=== PATIENT | male | born 1970 | race Caucasian/White ===

== ENCOUNTER 2019-03-30 04:10 | Inpatient (IN) | payer MEDICAID ==
[~2019-03-30] VITALS: Ht 170.2 cm; Wt 112.9 kg
[2019-03-30 05:19] LABS: BASOPHILS % 0.8 % (0.0-2.0); EOSINOPHILS % 3.8 % (0.0-5.0); HEMATOCRIT. 43.5 % (42.0-52.0); HEMOGLOBIN. 15.1 g/dL (14.0-18.0); LYMPHOCYTES % 31.7 % (20.0-50.0); MEAN CORPUSCULAR HEMOGLOBIN 31.8 pg (28.0-32.0); MEAN CORPUSCULAR VOLUME 91.6 fL (80.0-94.0); MONOCYTES % 10.6 % (2.0-8.0); NEUTROPHILS % 53.1 % (40.0-76.0); PLATELET 204 x1000/uL (130-400); RED BLOOD CELL COUNT 4.75 mill/uL (4.7-6.1); RED CELL DISTRIBUTION WIDTH 13.7 % (11.6-14.6)
[2019-03-30 05:26] LABS: CHLORIDE 114 mEq/L (98-107)
[2019-03-30] MEDS ORDERED: KETOROLAC 15MG/ML VIAL IV ONE (06:00)
[2019-03-30] MEDS ORDERED: MORPHINE SULFATE 4 MG/ML CPJ (NOT FOR IM USE) IV ONE (06:15)
[2019-03-30] MEDS ORDERED: SODIUM CHLORIDE 0.9% 1,000 ML IV ONE (06:15)
[2019-03-30] MEDS ORDERED: ACETAMINOPHEN 325MG TABLET PO PRN (07:30)
[2019-03-30] MEDS ORDERED: HYDROCODONE/APAP 7.5/325MG 1 TAB TABLET PO PRN (07:30)
[2019-03-30] MEDS ORDERED: CLONIDINE 0.1MG TABLET PO PRN (07:30)
[2019-03-30] MEDS ORDERED: ENOXAPARIN 40MG/0.4ML SYR SUBCUT NR (09:00)
[2019-03-30] MEDS: THIAMINE HCL 100MG TABLET PO SCH ×2 (10:18→10:20)
[2019-03-30] MEDS: ONDANSETRON HCL 4MG/2ML INJ IV PRN (10:19)
[2019-03-30] MEDS: MORPHINE SULFATE 2 MG/ML CPJ (NOT FOR IM USE) IV PRN ×3 (10:19→21:33)
[2019-03-30] MEDS: SODIUM CHLORIDE 0.9% 1,000 ML IV SCH ×2 (10:19→17:47)
[2019-03-30 10:37] VITALS: BP 135/78
[2019-03-30 12:00] VITALS: BP 141/81
[2019-03-30 20:00] VITALS: BP 112/81
[2019-03-30] MEDS: ENOXAPARIN 30MG/0.3ML SYR SUBCUT SCH (21:27)
[2019-03-30 22:46] LABS: CLARITY URINE CLEAR (CLEAR); COLOR URINE YELLOW (YELLOW); KETONES URINE NEGATIVE (NEGATIVE); LEUKOCYTE ESTERASE URINE NEGATIVE (NEGATIVE); NITRITE URINE NEGATIVE (NEGATIVE); OCCULT BLOOD URINE NEGATIVE (NEGATIVE); PH URINE 5.5 (4.5-8.0); PROTEIN URINE NEGATIVE (NEGATIVE); SPECIFIC GRAVITY URINE 1.014 (1.005-1.030); UROBILINOGEN URINE 0.2 E.U./dL (0.2-1.0)
[2019-03-30 23:00] LABS: *AMPHETAMINES SCREEN URINE NEGATIVE (NEGATIVE); *BARBITURATES SCREEN URINE NEGATIVE (NEGATIVE); *BENZODIAZEPINES SCREEN URINE NEGATIVE (NEGATIVE); *COCAINE SCREEN URINE NEGATIVE (NEGATIVE)
[2019-03-30 23:01] LABS: CANNABINOID URINE SCREEN NEGATIVE (NEGATIVE); METHADONE URINE SCREEN NEGATIVE (NEGATIVE); OPIATES URINE SCREEN PRESUMTIVE POSITIVE (NEGATIVE); PHENCYCLIDINE URINE SCREEN NEGATIVE (NEGATIVE)
[2019-03-31] VITALS: BP 106/66
[2019-03-31] MEDS: SODIUM CHLORIDE 0.9% 1,000 ML IV SCH ×3 (00:08→23:46)
[2019-03-31 04:00] VITALS: BP 117/57
[2019-03-31 06:49] LABS: BASOPHILS % 0.7 % (0.0-2.0); EOSINOPHILS % 3.4 % (0.0-5.0); HEMOGLOBIN. 14.9 g/dL (14.0-18.0); LYMPHOCYTES % 32.1 % (20.0-50.0); MEAN CORPUSCULAR HEMOGLOBIN 30.9 pg (28.0-32.0); MEAN CORPUSCULAR VOLUME 91.1 fL (80.0-94.0); MEAN PLATELET VOLUME 8.1 fl (7.4-10.4); MONOCYTES % 10.9 % (2.0-8.0); NEUTROPHILS % 52.9 % (40.0-76.0); PLATELET 187 x1000/uL (130-400); RED BLOOD CELL COUNT 4.83 mill/uL (4.7-6.1); RED CELL DISTRIBUTION WIDTH 13.6 % (11.6-14.6)
[2019-03-31 06:50] LABS: CHLORIDE 112 mEq/L (98-107)
[2019-03-31 07:05] LABS: AMYLASE 61 IU/L (25-115)
[2019-03-31 08:00] VITALS: BP 119/82
[2019-03-31] MEDS: MORPHINE SULFATE 2 MG/ML CPJ (NOT FOR IM USE) IV PRN ×3 (08:35→19:56)
[2019-03-31] MEDS: ENOXAPARIN 30MG/0.3ML SYR SUBCUT SCH ×2 (08:35→20:00)
[2019-03-31] MEDS: THIAMINE HCL 100MG TABLET PO SCH (08:35)
[2019-03-31 12:00] VITALS: BP 112/72
[2019-03-31] MEDS: ONDANSETRON HCL 4MG/2ML INJ IV PRN (15:49)
[2019-03-31 16:00] VITALS: BP 118/71
[2019-03-31 20:00] VITALS: BP 120/84
[2019-04-01] VITALS: BP 112/76
[2019-04-01] MEDS: MORPHINE SULFATE 2 MG/ML CPJ (NOT FOR IM USE) IV PRN ×3 (00:07→10:50)
[2019-04-01] MEDS: DEXT 5%/0.45% NACL KCL 20MEQ/L 1,000 ML IV SCH ×2 (02:17→19:54)
[2019-04-01 04:00] VITALS: BP 107/75
[2019-04-01 07:18] LABS: BASOPHILS % 0.9 % (0.0-2.0); HEMOGLOBIN. 14.8 g/dL (14.0-18.0); LYMPHOCYTES % 41.7 % (20.0-50.0); MEAN CORPUSCULAR HEMOGLOBIN 31.5 pg (28.0-32.0); MEAN CORPUSCULAR VOLUME 91.7 fL (80.0-94.0); MEAN PLATELET VOLUME 7.8 fl (7.4-10.4); MONOCYTES % 13.2 % (2.0-8.0); NEUTROPHILS % 39.2 % (40.0-76.0); PLATELET 197 x1000/uL (130-400); RED BLOOD CELL COUNT 4.69 mill/uL (4.7-6.1); RED CELL DISTRIBUTION WIDTH 13.8 % (11.6-14.6)
[2019-04-01 07:31] LABS: CHLORIDE 110 mEq/L (98-107)
[2019-04-01 08:00] VITALS: BP 114/61
[2019-04-01] MEDS: THIAMINE HCL 100MG TABLET PO SCH (08:49)
[2019-04-01] MEDS ORDERED: FENTANYL CITRATE/PF 50MCG/ML 2ML VIAL ONE (11:30)
[2019-04-01] MEDS ORDERED: MIDAZOLAM HCL 2 MG/2 ML VIAL ONE (11:30)
[2019-04-01] MEDS ORDERED: LIDOCAINE HCL/PF 1% 10 MG/ML 5ML VIAL ONE ×2 (11:30→11:35)
[2019-04-01] MEDS ORDERED: PROPOFOL 200MG/20ML VIAL IV ONE (11:30)
[2019-04-01] MEDS ORDERED: SUCCINYLCHOLINE CHLORIDE 200MG/10ML IV ONE (11:30)
[2019-04-01] MEDS ORDERED: ROCURONIUM BROMIDE 10MG/ML VIAL 5ML IV ONE (11:31)
[2019-04-01] MEDS ORDERED: EPHEDRINE SULFATE 50MG/ML VIAL ONE (11:35)
[2019-04-01] MEDS ORDERED: ONDANSETRON HCL 4MG/2ML INJ ONE (11:39)
[2019-04-01] MEDS ORDERED: DEXAMETHASONE 4MG/ML 1ML VIAL ONE (11:40)
[2019-04-01 12:00] VITALS: BP 122/79
[2019-04-01] MEDS ORDERED: BUPIVACAINE HCL/PF 0.5% (5MG/ML) 10ML ONE (13:17)
[2019-04-01] MEDS ORDERED: LIDOCAINE HCL 1% 20ML VIAL (Pyxis) INJ ONE (13:17)
[2019-04-01] MEDS ORDERED: CEFAZOLIN SODIUM 1000MG/VIAL ONE (14:39)
[2019-04-01] MEDS ORDERED: GLYCOPYRROLATE 0.2 MG/ML 2ML VIAL ONE (15:31)
[2019-04-01] MEDS ORDERED: NEOSTIGMINE METHYLSULFATE 1MG/ML 10 ML VIAL ONE (15:31)
[2019-04-01] MEDS ORDERED: KETOROLAC 30MG/ML VIAL ONE (15:33)
[2019-04-01] MEDS ORDERED: SKIN ADHESIVE 0.7 GM EA TOP ONE (15:35)
[2019-04-01] MEDS ORDERED: HYDROMORPHONE HCL/PF 2MG/ML CPJ IV PRN (16:30)
[2019-04-01] MEDS: HYDROMORPHONE HCL/PF 2MG/ML CPJ IV PRN ×2 (19:53→23:25)
[2019-04-01 20:00] VITALS: BP 125/86
[2019-04-02] VITALS: BP 123/81
[2019-04-02] MEDS: DEXT 5%/0.45% NACL KCL 20MEQ/L 1,000 ML IV SCH ×2 (03:18→09:24)
[2019-04-02] MEDS: HYDROMORPHONE HCL/PF 2MG/ML CPJ IV PRN (03:55)
[2019-04-02 04:00] VITALS: BP 102/65
[2019-04-02 08:00] VITALS: BP 106/61
[2019-04-02] MEDS: THIAMINE HCL 100MG TABLET PO SCH (09:23)
[2019-04-02 12:00] VITALS: BP 111/66
[2019-04-02 13:02] VITALS: BP 111/66
== END 2019-04-02 13:30 | disposition home or self-care (01) | DRG 263 ==
LOC: ER 04:10 → 6EST 06:49 → ENRESERV 08:49
PROVIDERS: ADMIT Internal Medicine Nephrology; ATTEND Internal Medicine Nephrology
PROC: 0FT44ZZ Resection of Gallbladder, Percutaneous Endoscopic Approach (ICD-10-PCS; principal; 2019-04-01)
DX: K80.00 Calculus of gallbladder with acute cholecystitis without obstruction (principal); K85.10 Biliary acute pancreatitis without necrosis or infection; E87.8 Other disorders of electrolyte and fluid balance, not elsewhere classified; E44.1 Mild protein-calorie malnutrition; E66.01 Morbid (severe) obesity due to excess calories; K76.0 Fatty (change of) liver, not elsewhere classified; F17.210 Nicotine dependence, cigarettes, uncomplicated; Z68.39 Body mass index [BMI] 39.0-39.9, adult; Z71.6 Tobacco abuse counseling; Z71.3 Dietary counseling and surveillance
CPT/HCPCS: 36415; 76705; 78227; 80048; 80305; 81003; 82150; 83036; 88304; 96361; 96374; 96375; 99285; A9537; J0330; J0690; J1100; J1170; J1650; J1885; J2250; J2270; J2405; J2704; J2710; J3010; J3490; J7030

== ENCOUNTER 2019-06-01 04:36 | Emergency (ER) | payer MEDICAID ==
[~2019-06-01] VITALS: Ht 170.2 cm; Wt 102.0 kg
[2019-06-01 07:58] VITALS: BP 127/83
== END 2019-06-01 08:07 | disposition home or self-care (01) ==
LOC: ER 04:36
DX: R06.00 Dyspnea, unspecified (principal); F17.210 Nicotine dependence, cigarettes, uncomplicated; F15.10 Other stimulant abuse, uncomplicated; Z71.6 Tobacco abuse counseling; Z87.828 Personal history of other (healed) physical injury and trauma; Z98.890 Other specified postprocedural states
CPT/HCPCS: 71045; 93005; 99283; 99406

== ENCOUNTER 2019-06-26 04:06 | Emergency (ER) | payer MEDICAID ==
[~2019-06-26] VITALS: Ht 170.2 cm; Wt 109.6 kg
[2019-06-26] MEDS ORDERED: TETRACAINE 0.5% OPHTH DROPS 4ML RIGHTEYE ONE (05:15)
[2019-06-26] MEDS ORDERED: IBUPROFEN 600MG TABLET PO ONE (05:15)
[2019-06-26] MEDS ORDERED: FLUORESCEIN SODIUM 1MG/STRIP RIGHTEYE ONE (05:30)
[2019-06-26 05:56] VITALS: BP 133/87
== END 2019-06-26 05:57 | disposition home or self-care (01) ==
LOC: ER 04:06
DX: R51 Headache (principal); H57.11 Ocular pain, right eye; R03.0 Elevated blood-pressure reading, without diagnosis of hypertension; F15.10 Other stimulant abuse, uncomplicated
CPT/HCPCS: 99284

== ENCOUNTER 2020-02-01 02:50 | Emergency (ER) | payer MEDICAID ==
[~2020-02-01] VITALS: Ht 170.2 cm; Wt 109.0 kg
[2020-02-01 02:52] VITALS: BP 135/91
[2020-02-01] MEDS ORDERED: IBUPROFEN 800MG TABLET PO ONE (03:15)
== END 2020-02-01 03:21 | disposition left against medical advice (07) ==
LOC: ER 02:50
DX: M25.571 Pain in right ankle and joints of right foot (principal); F15.10 Other stimulant abuse, uncomplicated; Z88.9 Allergy status to unspecified drugs, medicaments and biological substances; Z98.890 Other specified postprocedural states
CPT/HCPCS: 99281

== ENCOUNTER 2021-05-14 19:23 | Emergency (ER) | payer MEDICAID ==
[~2021-05-14] VITALS: Ht 170.2 cm; Wt 98.0 kg
[~2021-05-14 19:23] MED LIST: NAPR-681 PO
[2021-05-14] MEDS ORDERED: HYDR30CR80 TP (23:17)
[2021-05-14 23:30] VITALS: BP 120/65
== END 2021-05-14 23:40 | disposition home or self-care (01) ==
LOC: ER 19:23
DX: K62.89 Other specified diseases of anus and rectum (principal); F15.90 Other stimulant use, unspecified, uncomplicated; Z88.6 Allergy status to analgesic agent
CPT/HCPCS: 99283

== ENCOUNTER 2021-06-08 10:40 | Emergency (ER) | payer MEDICAID ==
[~2021-06-08] VITALS: Ht 170.2 cm; Wt 102.0 kg
[~2021-06-08 10:40] MED LIST changes: +HYDR30CR80 TP
[2021-06-08] MEDS ORDERED: IBUPROFEN 600MG TABLET PO ONE (11:30)
[2021-06-08 11:54] VITALS: BP 129/90
[2021-06-08] MEDS ORDERED: BENZ1LOZ60 MT (12:54)
[2021-06-08] MEDS ORDERED: IBUP-2029 MT (12:54)
== END 2021-06-08 13:32 | disposition home or self-care (01) ==
LOC: ER 10:52
DX: U07.1 COVID-19 (principal); R50.9 Fever, unspecified; J02.9 Acute pharyngitis, unspecified; Z79.899 Other long term (current) drug therapy; F15.10 Other stimulant abuse, uncomplicated
CPT/HCPCS: 87426; 99283

== ENCOUNTER 2021-07-15 13:33 | Emergency (ER) | payer MEDICAID ==
[~2021-07-15] VITALS: Ht 170.2 cm; Wt 102.0 kg
[~2021-07-15 13:33] MED LIST changes: +BENZ1LOZ60 MT; +IBUP-2029 MT
[2021-07-15] MEDS ORDERED: KETOROLAC 30MG/ML VIAL IV STA (14:23)
[2021-07-15] MEDS ORDERED: MORPHINE SULFATE 4 MG/ML CPJ (NOT FOR IM USE) IV STA (14:23)
[2021-07-15] MEDS ORDERED: SODIUM CHLORIDE 0.9% 1,000 ML IV ONE (14:30)
[2021-07-15 14:45] LABS: BASOPHILS % 0.6 % (0.0-2.0); EOSINOPHILS % 2.8 % (0.0-5.0); HEMATOCRIT. 48.2 % (42.0-52.0); HEMOGLOBIN. 16.6 g/dL (14.0-18.0); LYMPHOCYTES % 17.8 % (20.0-50.0); MEAN CORPUSCULAR HEMOGLOBIN 31.8 pg (28.0-32.0); MEAN CORPUSCULAR VOLUME 92.4 fL (80.0-94.0); MEAN PLATELET VOLUME 8.1 fl (7.4-10.4); MONOCYTES % 9.6 % (2.0-8.0); NEUTROPHILS % 69.2 % (40.0-76.0); PLATELET 247 x1000/uL (130-400); RED BLOOD CELL COUNT 5.22 mill/uL (4.7-6.1)
[2021-07-15 14:48] LABS: CHLORIDE 113 mEq/L (98-107)
[2021-07-15 15:32] LABS: CLARITY URINE CLEAR (CLEAR); COLOR URINE DARK YELLOW (YELLOW); KETONES URINE TRACE (NEGATIVE); LEUKOCYTE ESTERASE URINE NEGATIVE (NEGATIVE); NITRITE URINE NEGATIVE (NEGATIVE); OCCULT BLOOD URINE NEGATIVE (NEGATIVE); PH URINE 5.5 (4.5-8.0); PROTEIN URINE 1+ (NEGATIVE); SPECIFIC GRAVITY URINE 1.035 (1.005-1.030)
[2021-07-15] MEDS ORDERED: IOHEXOL-300 100 ML BOTTLE ONE (18:51)
[2021-07-15 18:56] VITALS: BP 129/84
== END 2021-07-15 21:03 | disposition home or self-care (01) ==
LOC: ER 13:33
DX: R10.31 Right lower quadrant pain (principal); F12.10 Cannabis abuse, uncomplicated; Z90.49 Acquired absence of other specified parts of digestive tract
CPT/HCPCS: 36415; 74177; 80053; 81003; 83690; 85025; 96361; 96374; 96375; 99285; J1885; J2270; J7030; J7042; Q9967

== ENCOUNTER 2021-11-24 18:10 | Emergency (ER) | payer MEDICAID ==
[~2021-11-24] VITALS: Ht 170.2 cm; Wt 111.0 kg
[~2021-11-24 18:10] MED LIST changes: -BENZ1LOZ60 MT; +BENZ1LOZ73 MT
[2021-11-24] MEDS ORDERED: KETOROLAC 15MG/ML VIAL IM ONE (19:45)
[2021-11-24 20:53] VITALS: BP 108/75
== END 2021-11-24 20:53 | disposition home or self-care (01) ==
LOC: ER 18:10
DX: M25.522 Pain in left elbow (principal)
CPT/HCPCS: 96372; 99283; J1885

== ENCOUNTER 2022-01-19 00:25 | Emergency (ER) | payer MEDICAID ==
[~2022-01-19] VITALS: Ht 170.2 cm; Wt 111.0 kg
[2022-01-19 00:32] VITALS: BP 137/80
[2022-01-19] MEDS ORDERED: BO1 TP (01:07)
== END 2022-01-19 01:18 | disposition home or self-care (01) ==
LOC: ER 00:25
DX: S99.822A Other specified injuries of left foot, initial encounter (principal); X58.XXXA Exposure to other specified factors, initial encounter; Y93.89 Activity, other specified; Y92.89 Other specified places as the place of occurrence of the external cause; R03.0 Elevated blood-pressure reading, without diagnosis of hypertension
CPT/HCPCS: 99282